=== PATIENT | male | born 1950 | race Caucasian/White ===

== ENCOUNTER → 2017-08-03 | Day surgery (SDC) | payer MEDICARE ==
[~2017-08-03] VITALS: Ht 182.8 cm; Wt 95.3 kg
[~2017-08-03] MED LIST: ASA PO; ASPIRIN81 M1 PO; EAR WAX REMOVAL15 ML OT; LOPRESSOR100 M1 PO; NORVASC5 MG PO; OMEPRAZOLE D/R20 MG PO; TERAZOSIN HCL10 M1 PO; ZESTRIL,PRINIVI10 MG PO; ZOCOR20 MG; ZOCOR40 MG PO
--- NOTE | ~2017-08-03 | O ---
[place], [place] OPERATIVE NOTE NAME: ROWENA SCHWARTZ UNIT #: [id number] ROOM: DOCTOR: SHRUTI DUTTON MD BIRTHDATE: [birth year] DOS: 08/03/2017 PREOPERATIVE DIAGNOSIS: Cataract, left eye. POSTOPERATIVE DIAGNOSIS: Cataract, left eye. OPERATION: Extracapsular cataract extraction by phacoemulsification with posterior chamber intraocular lens implantation, left eye. ANESTHESIA: Monitored standby. OPERATIVE FINDINGS AND PROCEDURE: 2% Xylocaine topical anesthetic gel was applied to the eye in the preop area. The patient was taken to the operating room and prepped and draped in the standard fashion for sterile intraocular surgery. A time out procedure was performed verifying correct patient, correct site and corrects lens with Reggie Dutton M.D. The operating microscope was swung into position and the lid speculum was inserted. Using a Fatou paracentesis blade, a paracentesis was made through clear cornea. Viscoelastic was used to fill the anterior chamber. Using a metal keratome a 2.4 mm self-sealing clear corneal cataract incision was made temporally at the limbus. Using a pre-bent 25 gauge cystotome needle, a standard continuous curvilinear capsulorrhexis was performed. The anterior capsule was removed with forceps. The lens nucleus was hydrodissected and phacoemulsified in the posterior chamber. Cortical material was removed with the irrigation aspiration hand piece and the posterior capsule was then polished with a curet under irrigation. The posterior chamber and capsular bag were filled with viscoelastic. A posterior chamber intraocular lens manufactured by: [employer], Model #[id number], and 18.0 diopters in strength were then inserted into the posterior chamber and within the capsular bag using the lens cartridge and injector system. Viscoelastic was removed using the irrigation aspiration handpiece. The anterior chamber was filled with balanced salt solution through the paracentesis. Both the paracentesis site and cataract incisions were hydrated with BSS and verified to be water-tight and self-sealing. Cefuroxime 1 mg/0.1 mL was injected into the anterior chamber through the paracentesis site. The incision checked to be water-tight using a Weck-Anaya sponge. The integrity of the cataract wound and ocular tension were checked. Lid speculum and drapes were removed. The patient was transferred from the operating room to the recovery room in satisfactory condition. [place], [place] OPERATIVE NOTE NAME: ROWENA SCHWARTZ UNIT #: [id number] ROOM: DOCTOR: SHRUTI DUTTON MD BIRTHDATE: [birth year] SHRUTI DUTTON MD CM:OPRECORD:OPERATIVE NOTE [id number] SHRUTI DUTTON MD 08/03/17 0958 interface
[2017-08-03 07:15] VITALS: BP 144/75
[2017-08-03 08:23] VITALS: BP 145/85
[2017-08-03 08:38] VITALS: BP 137/86
[2017-08-03 08:53] VITALS: BP 158/87
== END | disposition home or self-care (01) ==
LOC: SDC 07-29 08:45
DX: H26.8 Other specified cataract (principal); I10 Essential (primary) hypertension; K21.9 Gastro-esophageal reflux disease without esophagitis; E78.00 Pure hypercholesterolemia, unspecified; F17.210 Nicotine dependence, cigarettes, uncomplicated; Z88.8 Allergy status to other drugs, medicaments and biological substances; Z79.899 Other long term (current) drug therapy

== ENCOUNTER → 2019-05-02 | Day surgery (SDC) | payer MEDICARE ==
[~2019-05-02] VITALS: Ht 182.8 cm; Wt 103.9 kg
[~2019-05-02] MED LIST changes: +LIDEX 0.05% CRE15 GM T; +LIPITOR40 MG PO; +NITROSTAT0.3 M1 SL; +PANTOPRAZOLE SO20 MG PO
--- NOTE | ~2019-05-02 | O ---
[place], [place] OPERATIVE NOTE NAME: ROWENA SCHWARTZ UNIT #: [id number] ROOM: DOCTOR: SHRUTI DUTTON MD BIRTHDATE: [birth year] DOS: 05/02/2019 PREOPERATIVE DIAGNOSIS: Cataract, right eye. POSTOPERATIVE DIAGNOSIS: Cataract, right eye. OPERATION: Extracapsular cataract extraction by phacoemulsification with posterior chamber intraocular lens implantation, right eye. ANESTHESIA: Monitored standby. OPERATIVE FINDINGS AND PROCEDURE: 2% Xylocaine topical anesthetic gel was applied to the eye in the preop area. The patient was taken to the operating room and prepped and draped in the standard fashion for sterile intraocular surgery. A time out procedure was performed verifying correct patient, correct site and corrects lens with Reggie Dutton M.D. The operating microscope was swung into position and the lid speculum was inserted. Using a Fatou paracentesis blade, a paracentesis was made through clear cornea. A preservative-free mixture of lidocaine 4% and preservative-free epinephrine 1:1000 mixed in balanced salt solution was injected into the anterior chamber. Viscoelastic was used to fill the anterior chamber. Using a metal keratome a 2.4 mm self-sealing clear corneal cataract incision was made temporally at the limbus. Using a pre-bent 25 gauge cystotome needle, a standard continuous curvilinear capsulorrhexis was performed. The anterior capsule was removed with forceps. The lens nucleus was hydrodissected and phacoemulsified in the posterior chamber. Cortical material was removed with the irrigation aspiration hand piece and the posterior capsule was then polished with a curet under irrigation. The posterior chamber and capsular bag were filled with viscoelastic. A posterior chamber intraocular lens manufactured by: The lens implant was injected into the posterior chamber and placed within the capsular bag. It was immediately noted that the proximal haptic had been amputated by the patient service rep at the junction with the optic. Additional Viscoat was instilled posterior to the implant. The incision was widened slightly. Lens forceps were used to grasp the remaining the intraocular lens and removed it from the eye. A second implant of the same rn building and strength was then placed into the posterior chamber and within the capsular bag. The incision was closed with two interrupted 10-0 nylon radial stitches. The knots were trimmed closely and then buried. Prior to tying the sutures, the viscoelastic was removed with the irrigation aspiration handpiece. The wound was verified to be watertight and self-sealing. The standard cefuroxime antibiotic mixture was injected into the eye through the paracentesis site. The incision was again checked for water-tightness and intraocular pressure was verified to be appropriate. Lid speculum and drapes were removed. One drop of ofloxacin was applied to the eye. The patient was transported from the operating room to the recovery room in satisfactory condition. [place], [place] OPERATIVE NOTE NAME: SCHWARTZROWENA UNIT #: [id number] ROOM: DOCTOR: SHRUTI DUTTON MD BIRTHDATE: [birth year] SHRUTI DUTTON MD CM:OPRECORD:OPERATIVE NOTE [id number] SHRUTI DUTTON MD 05/02/19 1445 interface
[2019-05-02 11:40] VITALS: BP 151/79
[2019-05-02 13:07] VITALS: BP 177/89
[2019-05-02 13:22] VITALS: BP 167/84
[2019-05-02 13:30] VITALS: BP 158/90
== END | disposition home or self-care (01) ==
LOC: SDC 04-27 12:30
DX: H25.811 Combined forms of age-related cataract, right eye (principal); I25.10 Atherosclerotic heart disease of native coronary artery without angina pectoris; I10 Essential (primary) hypertension; E78.5 Hyperlipidemia, unspecified; F17.210 Nicotine dependence, cigarettes, uncomplicated; I25.2 Old myocardial infarction; Z98.890 Other specified postprocedural states; Z79.899 Other long term (current) drug therapy; Z88.8 Allergy status to other drugs, medicaments and biological substances

== ENCOUNTER 2019-12-05 14:46 | Emergency (ER) | payer MEDICARE ==
[~2019-12-05] VITALS: Ht 182.8 cm; Wt 103.9 kg
[2019-12-05] MEDS ORDERED: AUGMENTIN 875-875 MG PO (17:59)
[2019-12-05] MEDS ORDERED: IBU800 MG PO (17:59)
[2019-12-05] MEDS ORDERED: NORCO 5-325 TA1 EACH PO (18:10)
== END 2019-12-05 18:17 | disposition home or self-care (01) ==
LOC: ED 14:46
DX: S62.111A Displaced fracture of triquetrum [cuneiform] bone, right wrist, initial encounter for closed fracture (principal); S09.90XA Unspecified injury of head, initial encounter; I10 Essential (primary) hypertension; I25.10 Atherosclerotic heart disease of native coronary artery without angina pectoris; E78.00 Pure hypercholesterolemia, unspecified; Z88.8 Allergy status to other drugs, medicaments and biological substances; Z79.82 Long term (current) use of aspirin; Z79.899 Other long term (current) drug therapy; W01.0XXA Fall on same level from slipping, tripping and stumbling without subsequent striking against object, initial encounter; Y93.89 Activity, other specified; Y92.89 Other specified places as the place of occurrence of the external cause; Y99.8 Other external cause status

== ENCOUNTER 2020-06-08 09:45 | Emergency (ER) | payer MEDICARE ==
[~2020-06-08] VITALS: Wt 103.9 kg
[~2020-06-08 09:45] MED LIST changes: +AUGMENTIN 875-875 MG PO; +IBU800 MG PO; +NORCO 5-325 TA1 EACH PO
[2020-06-08 10:19] LABS: BASO # 0.1 10*3/uL (0.0-0.1); BASO % 0.6 % (0.0-1.0); EOS % 0.2 % (1.0-4.0); HEMATOCRIT 41.1 % (42.0-52.0); LYMPH % 7.9 % (27.0-41.0); MEAN CELL VOLUME 89.7 fl (80.0-94.0); MEAN CORPUSCULAR HGB 28.2 pg (27.0-31.0); MEAN CORPUSCULAR HGB CONC 31.4 g/dl (33.0-37.0); MEAN PLATELET VOLUME 9.3 fl (9.6-12.3); MONO # 0.7 10*3/uL (0.1-1.0); MONO % 5.6 % (3.0-9.0); NEUT # 11.1 10*3/uL (2.3-7.9); NEUT % 85.3 % (47.0-73.0); PLATELET COUNT AUTOMATED 345 10*3/uL (130-400); RED BLOOD COUNT 4.58 10*6/uL (4.50-5.90); RED CELL DISTRI WIDTH 14.3 % (0-14.5)
[2020-06-08 10:36] LABS: ALBUMIN 3.7 gm/dl (3.1-4.5); ALKALINE PHOSPHATASE 137 U/L (45-117); BUN 12 mg/dl (7-24); CHLORIDE 104 mmol/L (98-107); CREATININE 1.18 mg/dL (0.70-1.30); POTASSIUM 3.7 mmol/L (3.5-5.1); SGOT/AST 14 IU/L (3-35); SGPT/ALT 17 U/L (12-78); SODIUM 138 mmol/L (136-145); TOTAL PROTEIN 7.9 gm/dL (6.4-8.2)
[2020-06-08 10:39] LABS: TROPONIN I < 0.015 ng/ml (<0.045)
[2020-06-08] MEDS ORDERED: NORCO 5-325 TA1 EACH PO (12:09)
[2020-06-08] MEDS ORDERED: MEDROL DOSEPAK4 MG PO (12:09)
[2020-06-08] MEDS ORDERED: METHOCARBAMOL500 M1 PO (12:09)
== END 2020-06-08 12:11 | disposition home or self-care (01) ==
LOC: ED 09:45
PROVIDERS: Nurse Practitioner Family
DX: M43.6 Torticollis (principal); R79.1 Abnormal coagulation profile; F17.200 Nicotine dependence, unspecified, uncomplicated; Z88.8 Allergy status to other drugs, medicaments and biological substances; Z79.899 Other long term (current) drug therapy; Z79.82 Long term (current) use of aspirin

== ENCOUNTER → 2020-09-17 | Outpatient (CLI) | payer OTHER ==
[~2020-09-17] MED LIST changes: +MEDROL DOSEPAK4 MG PO; +METHOCARBAMOL500 M1 PO
== END | disposition home or self-care (01) ==
LOC: US 09:35
PROVIDERS: ATTEND Nurse Practitioner Family
DX: R80.1 Persistent proteinuria, unspecified (principal)

== ENCOUNTER 2022-05-03 11:31 | Emergency (ER) | payer MEDICARE ==
[~2022-05-03] VITALS: Ht 182.8 cm; Wt 90.3 kg
[2022-05-03] MEDS ORDERED: POLYTRIM 1000010 M1 OPH (12:41)
[2022-05-03] MEDS ORDERED: PATADAY5 ML OS (12:41)
== END 2022-05-03 12:49 | disposition home or self-care (01) ==
LOC: ED 11:31
DX: H11.422 Conjunctival edema, left eye (principal); F17.200 Nicotine dependence, unspecified, uncomplicated; I25.2 Old myocardial infarction; Z79.899 Other long term (current) drug therapy; Z79.82 Long term (current) use of aspirin; Z88.8 Allergy status to other drugs, medicaments and biological substances

== ENCOUNTER 2024-12-06 11:49 | Emergency (ER) | payer OTHER ==
[~2024-12-06] VITALS: Ht 182.8 cm; Wt 88.9 kg
[~2024-12-06 11:49] MED LIST changes: -HYDROCHLOROTHIA25 M1 PO; -VALTREX1000 MG PO
[2024-12-06 12:40] LABS: BASO # 0.1 10*3/uL (0.0-0.1); BASO % 0.9 % (0.0-1.0); EOS # 0.2 10*3/uL (0.0-0.4); EOS % 2.4 % (1.0-4.0); HEMATOCRIT 36.4 % (42.0-52.0); MEAN CELL VOLUME 96.3 fl (80.0-94.0); MEAN CORPUSCULAR HGB 31.5 pg (27.0-31.0); MEAN CORPUSCULAR HGB CONC 32.7 g/dl (33.0-37.0); MEAN PLATELET VOLUME 9.8 fl (9.6-12.3); MONO # 0.9 10*3/uL (0.1-1.0); MONO % 9.5 % (3.0-9.0); NEUT # 6.2 10*3/uL (2.3-7.9); NEUT % 67.8 % (47.0-73.0); PLATELET COUNT AUTOMATED 375 10*3/uL (130-400); RED BLOOD COUNT 3.78 10*6/uL (4.50-5.90); RED CELL DISTRI WIDTH 13.9 % (0-14.5); WHITE BLOOD COUNT 9.1 10*3/uL (4.8-10.8)
[2024-12-06 13:03] LABS: BUN 17 mg/dl (9-23); CHLORIDE 97 mmol/L (98-107); POTASSIUM 3.2 mmol/L (3.4-5.1)
[2024-12-06] MEDS ORDERED: MAGNESIUM SULFATE 50 ML IV SCH (13:10)
[2024-12-06] MEDS ORDERED: MAGNESIUM SULFATE 100 ML IV ONE (13:15)
[2024-12-06] MEDS ORDERED: POTASSIUM CHLORIDE 20 MEQ TAB PO ONE (13:15)
[2024-12-06] MEDS ORDERED: VALTREX1000 MG PO (15:30)
[2024-12-06] MEDS ORDERED: HYDROCHLOROTHIA25 M1 PO (15:39)
== END 2024-12-06 17:49 | disposition home or self-care (01) ==
LOC: ED 11:49
PROVIDERS: Physician Assistant Medical
DX: E83.42 Hypomagnesemia (principal); E87.6 Hypokalemia; I10 Essential (primary) hypertension; E78.5 Hyperlipidemia, unspecified; K21.9 Gastro-esophageal reflux disease without esophagitis; I25.2 Old myocardial infarction; Z88.8 Allergy status to other drugs, medicaments and biological substances; Z79.82 Long term (current) use of aspirin; Z79.899 Other long term (current) drug therapy

== ENCOUNTER → 2024-12-06 | Outpatient (CLI) | payer OTHER ==
[~2024-12-06] MED LIST changes: +HYDROCHLOROTHIA25 M1 PO; +PATADAY5 ML OS; +POLYTRIM 1000010 M1 OPH; +VALTREX1000 MG PO
[2024-12-06 09:10] LABS: BASO # 0.1 10*3/uL (0.0-0.1); EOS # 0.2 10*3/uL (0.0-0.4); EOS % 2.3 % (1.0-4.0); HEMATOCRIT 36.8 % (42.0-52.0); MEAN CELL VOLUME 96.1 fl (80.0-94.0); MEAN CORPUSCULAR HGB 31.6 pg (27.0-31.0); MEAN CORPUSCULAR HGB CONC 32.9 g/dl (33.0-37.0); MEAN PLATELET VOLUME 9.6 fl (9.6-12.3); MONO # 0.9 10*3/uL (0.1-1.0); MONO % 9.5 % (3.0-9.0); NEUT # 6.9 10*3/uL (2.3-7.9); NEUT % 71.6 % (47.0-73.0); PLATELET COUNT AUTOMATED 375 10*3/uL (130-400); RED BLOOD COUNT 3.83 10*6/uL (4.50-5.90); RED CELL DISTRI WIDTH 13.8 % (0-14.5); WHITE BLOOD COUNT 9.6 10*3/uL (4.8-10.8)
[2024-12-06 09:42] LABS: BILIRUBIN Negative (Negative); BLOOD Negative (Negative); CLARITY Clear (Clear); COLOR Yellow (Yellow); GLUCOSE Negative (Negative); KETONE Negative (Negative); LEUKO ESTERASE Negative (Negative); NITRITE Negative (Negative); SPECIFIC GRAVITY 1.015 (1.001-1.030)
[2024-12-06 09:42] LABS: BUN 16 mg/dl (9-23); CHLORIDE 96 mmol/L (98-107); POTASSIUM 2.6 mmol/L (3.4-5.1)
[2024-12-06 09:46] LABS: VITAMIN D, 25-HYDROXY 76.8 ng/mL (30-100)
[2024-12-06 11:45] LABS: EPITHELIAL CELLS 0-2; WBC 0-2 wbc/hpf (0-5)
== END | disposition home or self-care (01) ==
LOC: LAB 08:47
PROVIDERS: ATTEND Internal Medicine Nephrology
DX: N25.81 Secondary hyperparathyroidism of renal origin (principal); E55.9 Vitamin D deficiency, unspecified; N17.9 Acute kidney failure, unspecified; D63.8 Anemia in other chronic diseases classified elsewhere